=== PATIENT | female | born 2005 | race African-American/Black ===

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

== ENCOUNTER 2025-08-07 15:00 | Emergency (ER) | payer MEDICAID ==
[~2025-08-07] VITALS: Ht 157.5 cm; Wt 85.0 kg
[~2025-08-07 15:00] MED LIST changes: +BO1 TP; -FERR-63 PO; -IBUP-2030 PO; -PREN-176 PO
[2025-08-07 15:05] VITALS: O2SAT 99
[2025-08-07] MEDS: ACETAMINOPHEN 325MG TABLET PO ONE (15:45)
[2025-08-07 15:53] LABS: GLUCOSE URINE NEGATIVE (NEGATIVE); KETONES URINE NEGATIVE (NEGATIVE); LEUKOCYTE ESTERASE URINE TRACE (NEGATIVE); NITRITE URINE NEGATIVE (NEGATIVE); OCCULT BLOOD URINE NEGATIVE (NEGATIVE); PH URINE 7.0 (4.5-8.0); PROTEIN URINE NEGATIVE (NEGATIVE); SPECIFIC GRAVITY URINE 1.013 (1.005-1.030); UROBILINOGEN URINE 0.2 E.U./dL (0.2-1.0)
[2025-08-07 16:16] LABS: BASOPHILS % 0.3 % (0.0-2.0); EOSINOPHILS % 2.1 % (0.0-5.0); HEMATOCRIT. 32.1 % (36.0-48.0); HEMOGLOBIN. 10.7 g/dL (12.0-16.0); LYMPHOCYTES % 19.9 % (20.0-50.0); MEAN PLATELET VOLUME 9.2 fl (7.4-10.4); MONOCYTES % 8.2 % (2.0-8.0); NEUTROPHILS % 69.5 % (40.0-76.0); PLATELET 195 x1000/uL (130-400); RED BLOOD CELL COUNT 3.39 mill/uL (4.2-5.4); RED CELL DISTRIBUTION WIDTH 13.9 % (11.6-14.6)
[2025-08-07 16:23] LABS: COLOR URINE STRAW (YELLOW)
[2025-08-07 16:24] LABS: BACTERIA URINE NONE SEEN; CLARITY URINE SL HAZY (CLEAR); RBC URINE NONE SEEN /hpf (0-2); SQUAMOUS EPITHELIAL CELL URINE 1+ /lpf (RARE/1+); WBC URINE 0-2 /hpf (0-2)
[2025-08-07 16:40] LABS: CREATININE 0.5 mg/dL (0.6-1.0)
[2025-08-07 16:41] LABS: UREA NITROGEN BLOOD < 5 mg/dL (9-23)
[2025-08-07 16:42] LABS: ASPARTATE AMINOTRANSFERASE 20 IU/L (<34); BILIRUBIN DIRECT < 0.1 mg/dL (<=3.0)
[2025-08-07 16:43] LABS: BILIRUBIN TOTAL 0.3 mg/dL (0.1-1.0); PROTEIN TOTAL 6.8 g/dL (6.0-8.3)
[2025-08-07 16:46] LABS: HCG SCREEN POSITIVE
[2025-08-07 16:54] LABS: B-HCG QUANTITATIVE 32178 mIU/mL (<6)
[2025-08-07 18:06] VITALS: BP 124/84; PULSE 121; RESP 17; TEMP 36.4; O2SAT 100
== END 2025-08-07 18:10 | disposition short-term general hospital (02) ==
LOC: ER 15:00
DX: O26.893 Other specified pregnancy related conditions, third trimester (principal); R10.20 Pelvic and perineal pain unspecified side; Z3A.30 30 weeks gestation of pregnancy; Z98.890 Other specified postprocedural states
CPT/HCPCS: 36415; 76815; 80048; 80076; 81003; 81025; 84702; 84703; 85025; 99285

== ENCOUNTER 2025-09-13 15:26 | Emergency (ER) | payer MEDICAID ==
[~2025-09-13] VITALS: Ht 170.2 cm; Wt 88.0 kg
[2025-09-13 15:38] VITALS: O2SAT 100
[2025-09-13 16:00] VITALS: BP 149/84; PULSE 92; RESP 16; TEMP 37; O2SAT 100
[2025-09-13 16:47] LABS: CLARITY URINE CLEAR (CLEAR); COLOR URINE YELLOW (YELLOW); GLUCOSE URINE NEGATIVE (NEGATIVE); KETONES URINE NEGATIVE (NEGATIVE); LEUKOCYTE ESTERASE URINE TRACE (NEGATIVE); NITRITE URINE NEGATIVE (NEGATIVE); OCCULT BLOOD URINE NEGATIVE (NEGATIVE); PH URINE 7.0 (4.5-8.0); PROTEIN URINE NEGATIVE (NEGATIVE); SPECIFIC GRAVITY URINE 1.003 (1.005-1.030); UROBILINOGEN URINE 0.2 E.U./dL (0.2-1.0)
[2025-09-13 17:09] LABS: BASOPHILS % 0.3 % (0.0-2.0); EOSINOPHILS % 1.5 % (0.0-5.0); HEMATOCRIT. 30.0 % (36.0-48.0); HEMOGLOBIN. 9.8 g/dL (12.0-16.0); LYMPHOCYTES % 26.4 % (20.0-50.0); MEAN PLATELET VOLUME 9.8 fl (7.4-10.4); MONOCYTES % 10.9 % (2.0-8.0); NEUTROPHILS % 60.9 % (40.0-76.0); PLATELET 153 x1000/uL (130-400); RED BLOOD CELL COUNT 3.17 mill/uL (4.2-5.4); RED CELL DISTRIBUTION WIDTH 15.7 % (11.6-14.6)
[2025-09-13 17:20] LABS: INR 1.0
[2025-09-13 17:24] LABS: CREATININE 0.6 mg/dL (0.6-1.0); UREA NITROGEN BLOOD 6 mg/dL (9-23)
[2025-09-13 17:26] LABS: ASPARTATE AMINOTRANSFERASE 31 IU/L (<34); BILIRUBIN DIRECT 0.1 mg/dL (<=3.0); BILIRUBIN TOTAL 0.4 mg/dL (0.1-1.0); PROTEIN TOTAL 6.0 g/dL (6.0-8.3)
[2025-09-13 18:35] LABS: BACTERIA URINE 1+; RBC URINE 0-2 /hpf (0-2); SQUAMOUS EPITHELIAL CELL URINE 1+ /lpf (RARE/1+); WBC URINE 0-2 /hpf (0-2)
[2025-09-13] MEDS ORDERED: CEPH500T MT (18:59)
== END 2025-09-13 19:49 | disposition home or self-care (01) ==
LOC: ER 15:26
DX: O12.03 Gestational edema, third trimester (principal); R06.02 Shortness of breath; Z3A.35 35 weeks gestation of pregnancy; Z79.899 Other long term (current) drug therapy
CPT/HCPCS: 36415; 80048; 80076; 81003; 83735; 85025; 93970; 99284